=== PATIENT | female | born 1980 | race Caucasian/White ===

== ENCOUNTER → 2018-10-04 | Outpatient (REF) | payer OTHER ==
[~2018-10-04] MED LIST: ACET50TA PO; ANUS2.5C2 TOP; COLA50CA3 PO; IBUP600T26 PO; MOM30SS PO; PRENTAB74 PO
[2018-10-04 12:33] LABS: HEMATOCRIT 41.4 % (36.0-47.0); HEMOGLOBIN 13.8 g/dl (12.0-15.5); MEAN CORPUSCULAR HEMOGLOBIN 30.2 pg (27.0-33.0); MEAN CORPUSCULAR HGB CONC 33.3 g/dl (32.0-36.5); MEAN CORPUSCULAR VOLUME 90.6 fl (80.0-96.0); PLATELET COUNT, AUTOMATED 242 10^3/uL (150-450); RED BLOOD COUNT 4.57 10^6/uL (4.00-5.40); WHITE BLOOD COUNT 7.6 10^3/uL (4.0-10.0)
[2018-10-04 13:01] LABS: ALBUMIN 3.6 GM/DL (3.2-5.2); ALT/SGPT 18 U/L (12-78); BILIRUBIN,TOTAL 0.5 MG/DL (0.2-1.0); BLOOD UREA NITROGEN 12 MG/DL (7-18); CALCIUM LEVEL 8.8 MG/DL (8.5-10.1); CARBON DIOXIDE LEVEL 27 MEQ/L (21-32); CHLORIDE LEVEL 105 MEQ/L (98-107); CHOLESTEROL LEVEL 165 MG/DL (<200); CHOLESTEROL RISK RATIO 2.462 (<5); CREATININE FOR GFR 0.53 MG/DL (0.55-1.30); FREE T3 2.9 PG/ML (2.2-4.0); FREE T4 1.27 NG/DL (0.76-1.46); GLOMERULAR FILTRATION RATE > 60.0 (>60); GLUCOSE, FASTING 80 MG/DL (70-100); HDL CHOLESTEROL 67 MG/DL (>40); IRON (FE) 81 UG/DL (50-170); LDL CHOLESTEROL 86 MG/DL (<100); NON-HDL-C 98 MG/DL; PERCENT SATURATION 19.4 % (13.2-45.0); POTASSIUM SERUM 3.9 MEQ/L (3.5-5.1); SODIUM LEVEL 140 MEQ/L (136-145); TOTAL 25(OH) VITAMIN D 32.9 NG/ML (30.0-100.0); TOTAL IRON BINDING CAPACITY 417 UG/DL (250-450); TRIGLYCERIDES LEVEL 62 MG/DL (<150)
[2018-10-04 13:54] LABS: HEMOGLOBIN A1c 5.3 %
== END ==
LOC: M LABDRAW1 09:23
PROVIDERS: ATTEND Family Medicine
DX: R53.83 Other fatigue (principal); E03.9 Hypothyroidism, unspecified

== ENCOUNTER → 2020-05-24 | Outpatient (CLI) | payer OTHER ==
[~2020-05-24] MED LIST changes: -ACET50TA PO; +MAPA500T17 PO
== END ==
LOC: M PLALAB 13:37
PROVIDERS: ATTEND Family Medicine
DX: Z51.81 Encounter for therapeutic drug level monitoring (principal)
CPT/HCPCS: 36415; 80307; G0480

== ENCOUNTER → 2021-06-08 | Outpatient (REF) | payer OTHER | LOC: M SFHCWAGY 15:03 | PROVIDERS: ATTEND Advanced Practice Midwife | DX: Z12.4 Encounter for screening for malignant neoplasm of cervix (principal); Z77.9 Other contact with and (suspected) exposures hazardous to health | CPT/HCPCS: 87624; G0123 ==

== ENCOUNTER → 2021-11-25 | Outpatient (REF) | payer OTHER | LOC: M WUC 12:27 | PROVIDERS: ATTEND Internal Medicine | DX: R30.0 Dysuria (principal) ==

== ENCOUNTER 2023-09-11 09:13 | Emergency (ER) | payer OTHER ==
[~2023-09-11] VITALS: Ht 167.6 cm; Wt 77.5 kg
[2023-09-11] MEDS ORDERED: ALPR0.5T3 (09:33)
[2023-09-11] MEDS ORDERED: KURV0.15 (09:33)
[2023-09-11] MEDS ORDERED: PHEN30CA21 (09:33)
[2023-09-11] MEDS ORDERED: ACETAMINOPHEN 500 MG TAB PO ONE (12:00)
[2023-09-11 13:20] VITALS: BP 150/73; TEMP 97.4; O2SAT 98
== END 2023-09-11 13:21 | disposition home or self-care (01) ==
LOC: M ED 09:13 → EDBD 09:13 → M ED 13:21
DX: S13.4XXA Sprain of ligaments of cervical spine, initial encounter (principal); V49.40XA Driver injured in collision with unspecified motor vehicles in traffic accident, initial encounter; Y92.410 Unspecified street and highway as the place of occurrence of the external cause; Y93.9 Activity, unspecified; Z79.1 Long term (current) use of non-steroidal anti-inflammatories (NSAID); Z79.3 Long term (current) use of hormonal contraceptives; Z79.899 Other long term (current) drug therapy; Y99.8 Other external cause status

== ENCOUNTER → 2023-09-19 | Outpatient (REF) | payer OTHER ==
[~2023-09-19] MED LIST changes: +ALPR0.5T3; +KURV0.15; +PHEN30CA21
== END ==
LOC: M LAB REF 12:19
PROVIDERS: ATTEND Nurse Practitioner Family
DX: R30.0 Dysuria (principal)

== ENCOUNTER → 2024-07-16 | Outpatient (REF) | payer OTHER | LOC: M LAB REF 12:35 | PROVIDERS: ATTEND Nurse Practitioner Family | DX: R30.0 Dysuria (principal) ==